=== PATIENT | male | born 1950 ===

== ENCOUNTER 2024-06-25 07:43 | Inpatient (IN) | payer MEDICARE, OTHER, SELFPAY ==
--- NOTE | 2024-05-22 12:28 | CM ---
Addendum entered by Sadie Kerns 06/15/24 08:29:
Discussed with CHRIS Arcos for Dr. Jones. Patient has made arrangement for PT at home through [facility]. [facility] will see him in the home for a week or two then he will go to [facility] for outpatient PT.
Original Note:
Patient is scheduled for an elective L TKR on 06/25/24. Spoke with patient's prior to surgery via telephone. Introduced role of Orthopedic Navigator. She reports that she, patient and her father live in a bi level home. There are two steps to
enter and either six steps up or six steps down. He currently functions independently. He has a rolling walker, cane, raised toilet seat and shower seat. He had VN services following his prior TKR in 2022 (done at an outside facility). PCP is Kyle
Alan.
Discussed orthopedic program and post surgical plans. Reviewed anticipated length of stay and that goal is for patient to return home at discharge. Also reviewed outpatient PT. She is in agreement with tentative plan and states that she will be home
with patient and can assist if needed. He will go directly to outpatient PT at [facility].
Patient will complete online education.
Plan: Orthopedic Navigator will remain available to assist with the care of patient and will reassess discharge needs after surgery.
[2024-06-05 10:43] LABS: Hematocrit 37.6 % (39.0-52.0); Hemoglobin 13.4 g/dL (13.0-18.0); Mean Corp Hgb Conc. 35.6 g/dL (33.0-37.0); Mean Corpuscular Hgb 33.9 pg (27.0-31.0); Mean Corpuscular Volume 95.2 fL (80.0-94.0); Mean Platelet Volume 11.4 fL (7.4-10.4); Platelet Count 157 10^3/uL (130-400); Red Blood Cell Count 3.95 10^6/uL (4.70-6.10); Red Cell Dist. Width 12.4 % (11.5-14.5); White Blood Cell Count 4.2 10^3/uL (4.8-10.8)
[2024-06-05 11:30] LABS: ALT (SGPT) 18 U/L (0-50); AST (SGOT) 33 U/L (17-59); Albumin 4.1 g/dl (3.5-5.0); Alkaline Phosphatase 86 U/L (38-126); Blood Urea Nitrogen 17 mg/dl (9-20); Carbon Dioxide 25 mmol/L (22-30); Chloride 104 mmol/L (98-107); Glucose 111 mg/dl (70-99); Potassium 3.9 mmol/L (3.5-5.1); Sodium 138 mmol/L (135-145); Total Bilirubin 0.8 mg/dl (0.2-1.3); Total Protein 6.4 g/dl (6.3-8.2); eGFR > 60.00
[2024-06-05 11:40] LABS: Glycohemoglobin (HgbA1c) 5.2 % (4.0-5.6)
[2024-06-05 12:38] VITALS: BMI 26.9
[2024-06-25] VITALS (15 sets, daily range): BP systolic 121–158; BP diastolic 71–98; PULSE 77; O2SAT 99; BMI 25.5
[2024-06-25] MEDS: CELEBREX 200 MG PO (08:33)
[2024-06-25] MEDS: TYLENOL 650 MG PO ×4 (08:33→23:25)
[2024-06-25] MEDS: NORMOSOL-R 1000 IV ×2 (08:34→12:50)
--- NOTE | 2024-06-25 11:46 | W.DS.TRANS ---
DC Summary - Stock Puller
-
Discharge Instructions:
Sleep Apnea Risk Intermediate
Discharge Diagnosis/Procedures L TKA Dr. Jones 06/25/24
Diet As tolerated
Driving Restrictions No driving
Bathing Restrictions OK to Shower
Other Services PT
Instructions:
Stand-Alone Forms: Total Hip/Knee Replacement D/C
Changes to Home Medications: Yes
Discharge Medications:
DC Medications w/original date entered in [employer]
L.acidophilus-B.animalis-B.bifidum 25 billion cell-FOS 100 mg capsule (Probiotic Complex) 1 cap PO DAILY 06/18/24
allopurinol 300 mg tablet 300 mg PO DAILY 06/18/24
loratadine 10 mg tablet 10 mg PO DAILY 06/18/24
metoprolol succinate 25 mg tablet,extended release 24 hr 25 mg PO DAILY 06/18/24
mupirocin 2 % topical ointment 1 applic topical BID 06/18/24
omeprazole 40 mg capsule,delayed release 40 mg PO DAILY 06/18/24
pravastatin 40 mg tablet 40 mg PO HS 06/18/24
psyllium seed (sugar) oral powder (Metamucil (sugar) oral powder) 1 tsp PO DAILY 06/18/24
aspirin 325 mg tablet 325 mg PO DAILY blood clot prevention #1 tab 06/25/24
celecoxib 200 mg capsule 200 mg PO DAILY anti-inflammatory #14 caps 06/25/24
dexamethasone 4 mg tablet 4 mg PO BID inflammation #6 tabs 06/25/24
docusate sodium 100 mg tablet (Stool Softener) 100 mg PO BID #0 tabs 06/25/24
magnesium hydroxide 400 mg/5 mL oral suspension (Milk of Magnesia) 30 ml PO HS PRN Constipation #1 mL 06/25/24
ondansetron 4 mg disintegrating tablet 4 mg PO Q6H PRN n/v #20 tabs 06/25/24
oxycodone 5 mg tablet 5 mg PO Q6H PRN 1 tab moderate pain, 2 tabs severe pain #30 tabs 06/25/24
sennosides 8.6 mg tablet (Senokot) 17.2 mg (2 x 8.6 mg) PO BID laxative #2 tabs 06/25/24
Home Medication Changes
celecoxib 200 mg capsule 200 mg PO DAILY anti-inflammatory #14 caps 06/25/24�
dexamethasone 4 mg tablet 4 mg PO BID inflammation #6 tabs 06/25/24�
ondansetron 4 mg disintegrating tablet 4 mg PO Q6H PRN n/v #20 tabs 06/25/24�
oxycodone 5 mg tablet 5 mg PO Q6H PRN 1 tab moderate pain, 2 tabs severe pain #30 tabs 06/25/24�
Pending Results: No
[2024-06-25] MEDS: ROXICODONE 5 MG PO (12:42)
--- NOTE | 2024-06-25 15:52 | PTCARENOTE ---
Received patient from PACU via bed around 1310 in stable condition. Small amount of drainage to post op dressing to L knee. + movement + sensation to LLE. Pain controlled. Patient and family oriented to room. Call diaz in reach.
[2024-06-25] MEDS: ANCEF 5 IV (17:24)
[2024-06-25] MEDS: ASPIRIN 325 MG PO (17:24)
[2024-06-25] MEDS: ROXICODONE 10 MG PO (17:29)
[2024-06-25] MEDS: SENOKOT 17.2 MG PO (20:54)
[2024-06-25] MEDS: BACTROBAN 2% OINTMENT 1 APPLIC NASAL (20:55)
[2024-06-25] MEDS: COLACE 100 MG PO (20:55)
[2024-06-25] MEDS: TORADOL 15 MG IV (20:56)
[2024-06-25] MEDS: DECADRON 4 MG PO (20:56)
[2024-06-25] MEDS: NEURONTIN 300 MG PO (21:30)
[2024-06-25] MEDS: PRAVACHOL 40 MG PO (21:30)
[2024-06-26] MEDS: ANCEF 5 IV (01:14)
[2024-06-26 03:20] VITALS: BP 133/78
[2024-06-26] MEDS: TYLENOL 650 MG PO ×2 (03:55→08:07)
[2024-06-26 07:45] VITALS: BP 152/78
[2024-06-26] MEDS: COLACE 100 MG PO (08:07)
[2024-06-26] MEDS: TOPROL XL 25 MG PO (08:07)
[2024-06-26] MEDS: CELEBREX 200 MG PO (08:07)
[2024-06-26] MEDS: DECADRON 4 MG PO (08:07)
[2024-06-26] MEDS: SENOKOT 17.2 MG PO (08:07)
[2024-06-26] MEDS: ASPIRIN 325 MG PO (08:07)
[2024-06-26] MEDS: ZYLOPRIM 300 MG PO (08:07)
[2024-06-26] MEDS: TORADOL 15 MG IV (08:08)
[2024-06-26] MEDS: PROTONIX 40 MG PO (08:08)
[2024-06-26] MEDS: BACTROBAN 2% OINTMENT 1 APPLIC NASAL (08:08)
[2024-06-26] MEDS: TYLENOL PO ×2 (08:12→11:59)
[2024-06-26 09:58] VITALS: BP 135/74; PULSE 84; O2SAT 95
--- NOTE | 2024-06-26 10:26 | CM ---
Addendum entered by Celeste Stoner 06/26/24 10:46:
Per patient he has script at home for PT.
Original Note:
Patient seen bedside.
Patient OOB in chair.
Per patient he had a replacement of the other knee in the past.
Plan is for outpatient therapy at [facility].
will transport and pick patient up today.
IMM completed.
Plan: home with outpatient therapy.
--- NOTE | 2024-06-26 11:14 | W.PN.ORTHO ---
Today's Communication / Plan
-
d/c
Assessment
.
Distal Motor Intact: Yes
Dressing:
Clean, dry and intact.
Plan
.
Surgery / Date: Juan Alberto Jones 06/25/24
DVT Prophylaxis: Aspirin
Activity:
Out of bed.
PT/OT
Discharge Plan: Home w/ Outpatient PT
Subjective
.
.:
Patient resting comfortably.
Vital Signs and Labs
.
Vital Signs and Labs:
Lab Results
06/05/24 09:35
06/05/24 09:35
Temp Pulse Resp BP Pulse Ox
98.2 F 89 18 152/78 96
06/26/24 07:45 06/26/24 07:45 06/26/24 07:45 06/26/24 07:45 06/26/24 07:45
Non-invasive Hgb result: 12.5
Physical Exam
-
HEENT: No pallor, cyanosis, or jaundice. Throat clear.
NECK: Supple. No JVD.
RESPIRATORY: Lungs clear to auscultation.
CVS: S1, S2 normal. RRR.� No murmur, rub or gallop.
ABDOMEN: Soft, non-tender. No distension. BS+/normal.
EXTREMITIES: strength equal, no calf pain with palpation
ADMINISTRATIVE SERVICES OFFICER: AOx3. No focal deficits. personal clothing laundry aide grossly intact
[2024-06-26 11:20] VITALS: BP 135/68
[2024-06-26 11:39] LABS: Hepatitis C Antibody Negative (Negative)
== END 2024-06-26 12:05 | disposition home or self-care (01) | DRG 470 ==
LOC: 2 SOUTH 07:43
PROVIDERS: ADMITTING PHYSICIAN Specialist; FAMILY PHYSICIAN Family Medicine Sports Medicine
PROC: 0SRD0J9 Replacement of Left Knee Joint with Synthetic Substitute, Cemented, Open Approach (ICD-10-PCS; 2024-06-25)
DX: M17.12 Unilateral primary osteoarthritis, left knee (principal); M10.9 Gout, unspecified; E78.5 Hyperlipidemia, unspecified; I10 Essential (primary) hypertension; I25.10 Atherosclerotic heart disease of native coronary artery without angina pectoris; I25.2 Old myocardial infarction; E11.9 Type 2 diabetes mellitus without complications; I35.1 Nonrheumatic aortic (valve) insufficiency
CPT/HCPCS: 36415; 73560; 80053; 83036; 85027; 86803; 87070; 87147; 97110; 97116; 97162; 97166; 97530; 97535; C1713; C1776